=== PATIENT | male | born 1960 | race African-American/Black ===

== ENCOUNTER 2022-07-31 13:34 | Emergency (ER) | payer SELFPAY ==
[~2022-07-31] VITALS: Ht 182.9 cm; Wt 85.0 kg
[2022-07-31 13:39] VITALS: BP 161/98
[2022-07-31] MEDS ORDERED: LIPITOR (13:39)
[2022-07-31] MEDS ORDERED: ASPIRIN (13:39)
[2022-07-31] MEDS ORDERED: AMLODIPINE (13:39)
[2022-07-31] MEDS ORDERED: DILTIAZEM (13:39)
[2022-07-31] MEDS ORDERED: ASPIRIN 325MG EC TABLET PO ONE (14:45)
[2022-07-31 16:25] LABS: BASOPHILS % 0.6 % (0.0-2.0); EOSINOPHILS % 7.3 % (0.0-5.0); HEMATOCRIT. 42.5 % (42.0-52.0); HEMOGLOBIN. 14.5 g/dL (14.0-18.0); LYMPHOCYTES % 17.3 % (20.0-50.0); MEAN CORPUSCULAR HEMOGLOBIN 31.5 pg (28.0-32.0); MEAN CORPUSCULAR VOLUME 91.9 fL (80.0-94.0); MEAN PLATELET VOLUME 7.9 fl (7.4-10.4); MONOCYTES % 4.9 % (2.0-8.0); NEUTROPHILS % 69.9 % (40.0-76.0); PLATELET 302 x1000/uL (130-400); RED BLOOD CELL COUNT 4.62 mill/uL (4.7-6.1); RED CELL DISTRIBUTION WIDTH 14.5 % (11.6-14.6)
[2022-07-31 16:32] LABS: CHLORIDE 111 mEq/L (98-107)
== END 2022-07-31 19:03 | disposition home or self-care (01) ==
LOC: ER 13:53
DX: R07.89 Other chest pain (principal); E78.00 Pure hypercholesterolemia, unspecified; I10 Essential (primary) hypertension; I48.91 Unspecified atrial fibrillation; F17.210 Nicotine dependence, cigarettes, uncomplicated; Z71.6 Tobacco abuse counseling; Z79.01 Long term (current) use of anticoagulants; Z79.82 Long term (current) use of aspirin
CPT/HCPCS: 36415; 71045; 80053; 83880; 84484; 85025; 93005; 99285; 99406